=== PATIENT | male | born 1975 | race Caucasian/White ===

== ENCOUNTER 2024-02-16 15:25 | Emergency (ER) | payer OTHER, SELFPAY ==
[2024-02-16 15:27] VITALS: BP 150/87; PULSE 104; RESP 18; TEMP 37.2; O2SAT 99
--- NOTE | 2024-02-16 16:01 | ED.GENADULT ---
HPI - General Adult General Chief complaint: Skin/Abscess/Foreign Body Stated complaint: abcess Time Seen by Provider: 02/16/24 15:32 History of Present Illness HPI narrative: 48-year-old male presents to the emergency room for evaluation left-sided facial swelling for several days. Patient was seen at an outside urgent care earlier today, and was recommended to come to the emergency room to drain a dental abscess. Related Data Allergies Allergy/AdvReac Type Severity Reaction Status Date / Time shellfish derived AdvReac Unknown Verified 02/16/24 15:53 Review of Systems Review of Systems: ROS unremarkable except where noted in HPI Exam Narrative: GENERAL: Well-appearing, well-nourished, no physical limitations, and in no acute distress. HEAD: Normocephalic, atraumatic. EYES: Conjunctivae normal, PERRLA and EOMI. ENT: widespread periodontal disease, multiple dental caries, tenderness to the left lower molar, swelling noted to the left mandible CHEST: Clear to auscultation. No respiratory distress. No wheezes rales or rhonchi. No tenderness. HEART: Regular rate and rhythm. No murmur heard. Normal peripheral pulses. EXTREMITIES: Normal range of motion. No edema. No clubbing or cyanosis SKIN: Warm, dry, no rash. No noted wounds NEURO: No focal deficits. Alert and oriented x3. MAEW. CN's II-XI intact bilaterally, normal gait PSYCH: Cooperative. Normal mood and affect. Course Vital Signs Vital signs: Vital Signs Temperature 37.2 C 02/16/24 15:27 Pulse Rate 104 H 02/16/24 15:27 Respiratory Rate 18 02/16/24 15:27 Blood Pressure 150/87 H 02/16/24 15:27 Pulse Oximetry 99 02/16/24 15:27 Oxygen Delivery Room Air 02/16/24 15:27 Temperature 37.2 C 02/16/24 15:27 Pulse Rate 104 H 02/16/24 15:27 Respiratory Rate 18 02/16/24 15:27 Blood Pressure 150/87 H 02/16/24 15:27 Pulse Oximetry 99 02/16/24 15:27 Oxygen Delivery Room Air 02/16/24 15:27 Procedures Nerve Block Nerve Block 1: Nerve block date: 02/16/24 Nerve block time: 16:39 Time out performed: Yes Local Anesthetic: lidocaine 1% and with epi Amount of anesthesia used (mL): 3 Side: left Intraoral Nerve Block: inferior alveolar Procedure Successful: Yes Patient Tolerated Procedure: well Complications: none Additional Comments: scant amount of purulent drainage expressed Medical Decision Making Vital Signs Vital Signs: Vital Signs Temperature 37.2 C 02/16/24 15:27 Pulse Rate 104 H 02/16/24 15:27 Respiratory Rate 18 02/16/24 15:27 Blood Pressure 150/87 H 02/16/24 15:27 Pulse Oximetry 99 02/16/24 15:27 Oxygen Delivery Room Air 02/16/24 15:27 Temperature 37.2 C 02/16/24 15:27 Pulse Rate 104 H 02/16/24 15:27 Respiratory Rate 18 02/16/24 15:27 Blood Pressure 150/87 H 02/16/24 15:27 Pulse Oximetry 99 02/16/24 15:27 Oxygen Delivery Room Air 02/16/24 15:27 Discharge Plan Discharge Clinical Impression: Dental abscess Patient Disposition: Home, Self-Care Condition: Stable Instructions: Antibiotic Form, Abscess (ED) Prescriptions: New clindamycin HCl 300 mg capsule 300 mg PO Q8H 7 Days Qty: 21 0RF Follow-up/Referrals: PHYSICIAN,[employer] MANAGER [Non-Staff] - Time of Disposition: 16:37
[2024-02-16] MEDS: LIDO 1%/EPINEPHRINE 1:100,000 20 ML VIAL 30 ML INFILTRATE (16:43)
== END 2024-02-16 16:49 | disposition home or self-care (01) ==
PROVIDERS: Emergency Provider Nurse Practitioner Family
DX: K04.7 Periapical abscess without sinus (principal)
CPT/HCPCS: 64400; 64999; 99283

== ENCOUNTER 2025-02-07 09:57 | Emergency (ER) | payer OTHER, SELFPAY ==
[2025-02-07 10:05] VITALS: BP 178/109; PULSE 110; RESP 20; O2SAT 97
--- NOTE | 2025-02-07 10:39 | ED_ITS ---
HPI - Dental/Oral General Chief complaint: Dental/Oral Stated complaint: L JAW/DENTAL ABSCESS Time Seen by Provider: 02/07/25 10:07 History of Present Illness HPI Narrative: Patient is a 49-year-old male who presents ER with left-sided facial swelling. Worsening since yesterday but has been having dental pain for last 4 days. No fevers or chills or sweats. No intraoral drainage. Was seen at urgent care but they were concerned that he need abscess incision and drainage and referred him here. He has not been on antibiotics. Did take a 2.5 mg hydrocodone to help his pain this morning. Related Data Allergies Allergy/AdvReac Type Severity Reaction Status Date / Time tramadol Allergy Vomiting Verified 02/07/25 10:08 shellfish derived AdvReac Unknown Verified 02/07/25 10:08 Review of Systems Review of Systems: All systems reviewed & are unremarkable except as noted in HPI and below Constitutional: Constitutional: Reports no additional constitutional complaints Cardiovascular: Cardiovascular: Reports no additional cardiovascular complaints Respiratory: Respiratory: Reports no additional respiratory complaints Gastrointestinal: Gastrointestinal: Reports no additional gastrointestinal complaints Musculoskeletal: Musculoskeletal: Reports no additional musculoskeletal complaints PMFSH Past Medical History Medical History (Updated 02/07/25 @ 10:42 by Olegario Verduzco MD) Healthy adult male Exam Narrative: GENERAL: Well-appearing, well-nourished, and in no acute distress. HEAD: Normocephalic, atraumatic. ENT: Mucous membranes moist. Left-sided facial swelling along the angle of the mandible. Tender palpation where there is fullness around tooth number 20. Tolerating oral secretions without issue. NECK: Supple. NEURO: Alert and oriented x3. PSYCH: Normal mood and affect. Course Course Emergency Course: Ultrasound applied, no obvious pocket of abscess. Discharge home with Augmentin and pain control. Vital Signs Vital signs: Vital Signs Pulse Rate 110 H 02/07/25 10:05 Respiratory Rate 20 02/07/25 10:05 Blood Pressure 178/109 H 02/07/25 10:05 Pulse Oximetry 97 02/07/25 10:05 Oxygen Delivery Room Air 02/07/25 10:05 Pulse Rate 110 H 02/07/25 10:05 Respiratory Rate 20 02/07/25 10:05 Blood Pressure 178/109 H 02/07/25 10:05 Pulse Oximetry 97 02/07/25 10:05 Oxygen Delivery Room Air 02/07/25 10:05 Discharge Plan Discharge Clinical Impression: Toothache Patient Disposition: Home Condition: Stable Instructions: Antibiotic Form, Toothache (ED) Additional Instructions: Return the ER if you have worsening facial swelling, you cannot breathe, you cannot swallow, or have additional concerns. Use a dental referral line to help establish follow-up care. Patient Language: [place] Prescriptions: New hydrocodone-acetaminophen 5-325 mg tablet 1 tablet PO Q6H PRN (Reason: pain) Qty: 8 0RF amoxicillin-pot clavulanate 875-125 mg tablet 1 tablet PO Q12H Qty: 20 0RF No Action clindamycin HCl 300 mg capsule 300 mg PO Q8H 7 Days Qty: 21 0RF Follow-up/Referrals: Dental Referral Line [Outside] UNKNOWN,DOCTOR [Primary Care Provider] - Stand Alone Forms: Work/School Release IP
== END 2025-02-07 10:55 | disposition home or self-care (01) ==
PROVIDERS: Emergency Provider Emergency Medicine
DX: K08.89 Other specified disorders of teeth and supporting structures (principal)
CPT/HCPCS: 99283